=== PATIENT | female | born 1985 | race Two or more races ===

== ENCOUNTER 2021-09-23 14:55 | Outpatient (CLI) | payer OTHER | END 2021-09-23 15:00 | disposition home or self-care (01) | LOC: PPH VACUNA 14:55 | PROVIDERS: ATTEND Emergency Medicine Pediatric Emergency Medicine | DX: Z23 Encounter for immunization (principal) ==

== ENCOUNTER 2021-10-30 07:08 | Outpatient (CLI) | payer OTHER | END 2021-10-30 07:15 | disposition home or self-care (01) | LOC: RAD 07:08 | DX: M19.90 Unspecified osteoarthritis, unspecified site (principal) ==